=== PATIENT | female | born 1965 | race American Indian/Alaskan Native ===

== ENCOUNTER 2018-12-08 08:03 | Outpatient (CLI) | payer OTHER ==
--- NOTE | 2018-12-08 09:10 | XRay Report ---
CHEST 2 VIEWS INDICATION: HYPERTENSION. COMPARISON: None FINDINGS: Support devices: None. Heart: Within normal limits. Lungs/pleura: No acute air space or interstitial disease. No pneumothorax. Additional findings: None. IMPRESSION: Unremarkable chest films. Signer Name: Kostas Leslie Jr, MD Signed: 12/08/2018 9:05 AM Workstation Name: [id number]
--- NOTE | 2018-12-08 14:44 | Treadmill Report ---
TREADMILL STRESS TEST DATE OF THIS TEST: 12/08/2018. ORDERING PHYSICIAN: Dr. Tomi Mckenzie. INDICATION: Hypertension. FINDINGS: The patient exercised on a Jared protocol after obtaining the written consent. Baseline EKG was normal. The patient exercised to 10 minutes and 20 seconds with no limiting chest pain or shortness of breath. The maximum heart rate reached was 153 beats per minute, which corresponds to 91% of the maximum age predicted heart rate. Baseline blood pressure was 142/95 with a peak blood pressure of 181/91. IMPRESSION: This is a normal treadmill stress test with no evidence of ischemic EKG changes and no limiting chest pain or shortness of breath and appropriate blood pressure response. JOB# [id number] LIANET/NORMA
--- NOTE | 2018-12-11 13:18 | Mammography Report ---
DIGITAL SCREENING MAMMOGRAM WITH CAD, 12/08/2018 INDICATION: Routine screening mammography. TECHNIQUE: Digital bilateral 2D mammography was obtained in the craniocaudal and mediolateral obliq ue projections. This examination was interpreted with the benefit of Computer-Aided Detection analysi s. COMPARISON: None available. However, she indicated that she had a previous mammogram in [place]. FINDINGS: Breast Density: The breasts are heterogeneously dense, which may obscure small masses. Left asymmetries with architectural distortion require additional imaging. No suspicious calcificatio ns of the left breast. There is no evidence of dominant mass, suspicious calcifications or architectu ral distortion in the right breast. IMPRESSION: Comparison with the previous mammogram is recommended. We will attempt to obtain a prior mammogram for comparison. If we do not obtain a prior mammogram within 30 days, a revised report will be issued recommending a recall for additional imaging. Please be advised that the patient should no t schedule an appointment for return until adequate time (at least 2 weeks) has passed for us to obta in the prior mammogram. Follow up recommendation: Obtain prior study for comparison Category 0: Incomplete. Needs additional imaging evaluation and/or prior mammograms for comparison. A "normal" or negative report should not discourage follow up or biopsy of a clinically significant f inding. A written summary of these findings will be mailed to the patient. The patient will be entered into a mammography reporting system which will generate a reminder letter for the patient's next appointmen t at the appropriate interval. The [employer] recommends yearly mammograms starting at age 40 and continuing as l james as a woman is in good health. Breast MRI is recommended for women with an approximate 20-25% or greater lifetime risk of breast cancer, including women with a strong family history of breast or ova ricardo cancer or who have been treated for Hodgkin's disease. Signer Name: iH Tello MD Signed: 12/11/2018 1:14 PM Workstation Name: [id number]
== END 2018-12-08 08:04 | disposition home or self-care (01) ==
LOC: CARD 08:03 → EDBD 08:03 → CARD 08:04
PROVIDERS: ATTEND Internal Medicine
DX: Z12.31 Encounter for screening mammogram for malignant neoplasm of breast (principal); I10 Essential (primary) hypertension
CPT/HCPCS: 71046; 77067; 93017